=== PATIENT | female | born 1935 | race Caucasian/White ===

== ENCOUNTER → 2016-09-03 | Outpatient (CLI) | payer MEDICARE, OTHER | LOC: GMAL 10:51 | PROVIDERS: ATTEND Family Medicine | DX: D51.3 Other dietary vitamin B12 deficiency anemia (principal); R53.83 Other fatigue; E55.9 Vitamin D deficiency, unspecified ==

== ENCOUNTER → 2016-12-05 | Outpatient (CLI) | payer MEDICARE, OTHER ==
--- NOTE | 2016-12-07 00:10 | MRI ---
EXAM: MRI OF THE BRAIN WITHOUT AND WITH CONTRAST CLINICAL HISTORY: Headache COMPARISON: None available. TECHNIQUE : Multiplanar, multisequence imaging of the brain was obtained with and without contrast. FINDINGS: There is no hemorrhage, mass lesion, extra axial collection, cerebral edema, or mass effect. Diffusion sequences are normal. There is diffuse cerebral atrophy with severe periventricular deep white matter chronic microvascular changes. There is no abnormal signal within the brainstem or cerebellum.. The lateral ventricles, cortical sulci, and basal cisterns are patent. The cerebellar tonsils are above foramen magnum. The sella is normal. The vascular flow-voids are unremarkable. There is no abnormal enhancement. The paranasal sinuses, orbits and mastoids are unremarkable. IMPRESSION: No acute intracranial abnormality. Electronically signed by: Arias Worley MD 12/07/2016 12:09 AM CDT
== END | disposition home or self-care (01) ==
LOC: LAB.O 09:42
PROVIDERS: ATTEND Family Medicine
DX: G44.209 Tension-type headache, unspecified, not intractable (principal)

== ENCOUNTER → 2017-05-05 | Outpatient (CLI) | payer MEDICARE, OTHER | END | disposition home or self-care (01) | LOC: GMAL 11:03 | PROVIDERS: ATTEND Family Medicine | DX: D51.3 Other dietary vitamin B12 deficiency anemia (principal); E55.9 Vitamin D deficiency, unspecified ==

== ENCOUNTER → 2017-11-30 | Outpatient (CLI) | payer MEDICARE, OTHER | LOC: GMAL 14:30 | PROVIDERS: ATTEND Family Medicine | DX: D51.3 Other dietary vitamin B12 deficiency anemia (principal); R53.83 Other fatigue; E55.9 Vitamin D deficiency, unspecified ==

== ENCOUNTER → 2018-12-16 | Outpatient (CLI) | payer MEDICARE, OTHER | LOC: GMAL 15:17 | PROVIDERS: ATTEND Family Medicine | DX: I10 Essential (primary) hypertension (principal); E78.49 Other hyperlipidemia; R53.83 Other fatigue; E55.9 Vitamin D deficiency, unspecified ==

== ENCOUNTER → 2020-02-21 | Outpatient (CLI) | payer MEDICARE, OTHER | LOC: GMAL 11:27 | PROVIDERS: ATTEND Family Medicine | DX: D51.3 Other dietary vitamin B12 deficiency anemia (principal); R53.83 Other fatigue; E55.9 Vitamin D deficiency, unspecified; E78.5 Hyperlipidemia, unspecified ==

== ENCOUNTER → 2020-06-05 | Outpatient (CLI) | payer MEDICARE, OTHER ==
--- NOTE | 2020-06-05 15:37 | CT ---
EXAM DESCRIPTION: Chest w/o Contrast CLINICAL HISTORY: SOB COMPARISON: None. TECHNIQUE: Noncontrast transaxial CT images of the chest are obtained. This exam was performed according to our departmental dose-optimization program, which includes automated exposure control, adjustment of the mA and/or kV according to patient size and/or use of iterative reconstruction technique . FINDINGS: The heart shows moderate to severe coronary artery calcifications. Moderate scattered calcified plaque of the thoracic aorta without aneurysmal dilatation. Nodule in the lower pole left lobe thyroid measures 2.6 x 3.6 cm extending into the left paratracheal region of the upper chest. No pathologically enlarged mediastinal, hilar, or axillary lymphadenopathy. Mild pectus excavatum deformity of the lower anterior chest wall. Visualized upper abdomen shows calcifications of the spleen. Cholecystectomy changes are seen. Small hiatal hernia suspected. Lungs are normally aerated without acute appearing of tracer consolidation. Calcified pulmonary nodules are seen bilaterally. Mild interstitial thickening in the anterior aspect of the left lower lobe likely represents scarring or compressive atelectasis related to mild shift of the heart towards the left. Osseous structures show no aggressive bony lesions. Left shoulder reverse arthroplasty changes are seen. IMPRESSION: No acute findings on noncontrast CT of the chest. Mild scarring or atelectasis in the anterior aspect of the left lower lobe seen. 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 Mild pectus excavatum deformity of the lower anterior chest wall is seen. Nodule in the lower pole left lobe thyroid measuring 2.6 cm. Recommend dedicated thyroid ultrasound imaging. Electronically signed by: Kelton Santillan MD 06/05/2020 3:35 PM CDT
== END ==
LOC: CT 09:43
PROVIDERS: ATTEND Family Medicine
DX: R91.8 Other nonspecific abnormal finding of lung field (principal); J84.10 Pulmonary fibrosis, unspecified; E04.1 Nontoxic single thyroid nodule; Q67.6 Pectus excavatum

== ENCOUNTER → 2020-08-28 | Outpatient (CLI) | payer MEDICARE, OTHER | LOC: GMAL 13:22 | PROVIDERS: ATTEND Family Medicine | DX: E04.1 Nontoxic single thyroid nodule (principal); N39.0 Urinary tract infection, site not specified; Z79.899 Other long term (current) drug therapy ==